=== PATIENT | male | born 1975 | race Two or more races ===

== ENCOUNTER 2024-03-15 16:09 | Inpatient (IN) | payer MEDICAID, OTHER ==
[~2024-03-15] VITALS: Ht 165.1 cm; Wt 84.5 kg
--- NOTE | 2024-03-15 16:28 | ED.PDOC ---
General HPI Comments HPI: Poor Historian. 48-year-old male presents to emergency department for evaluation of urinary symptoms and pink urine. Patient has some minimal suprapubic pain. Patient has some burning with urination. Onset of symptoms this morning. Patient was found with a fever here in the emergency department. Patient denies any nausea or vomiting or diarrhea. Vitals T: 100.3 F RR: 20 HR: 130 BP: 93/76 O2: 98 % on RA PMH: HLD, HTN PSH: denies Social hx: denies tobacco use, endorses ETOH use, denies drug use medications: unknown allergies: NKDA REVIEW OF SYSTEMS: CONSTITUTIONAL: Denies acute: diaphoresis, HEAD: Denies acute: headache, photophobia Eyes: Denies acute: Double vision, vision loss, eye pain, eye discharge. EARS: Denies acute: tinnitus, hearing loss, ear discharge, ear pain, THROAT: Denies acute: sore throat, swelling, difficulty swallowing , pain with swallowing, change in voice. NECK: Denies acute: neck pain, neck swelling, stiff neck. HEART: Denies acute : chest pain, palpitations, LUNGS: Denies acute: SOB, wheezing, cough, hemoptysis ABDOMEN: Denies acute: abdominal pain, Nausea, Vomiting, diarrhea, melena , hematemesis, hematochezia SKIN: Denies acute: rash, redness, lesions, itchiness. EXTREMITIES: Denies acute: calf pain, numbness, tingling, weakness, denies pain in extremity. Denies acute: Low back pain. Neuro: Denies acute: focal neurological deficit, motor or sensory focal neurological deficit, tremors, seizure like activity, confusion, dizziness, change in mental status, loss of bowel or bladder function, cauda equina like symptoms. : Denies acute: flank pain, increase in urinary frequency. PSYCH: Denies acute: hallucination, suicidal ideation, homicidal ideation. PHYSICAL EXAM: General: Mild acute distress, awake and alert. Head: normocephalic, atraumatic. Neck: supple, trachea is midline, no swelling. Throat: Normal phonation. Eyes:, no erythema, no purulent discharge, no proptosis, no icterus. Heart: regular tachycardic, no significant murmur appreciated. Lungs: no apparent respiratory distress, Able to speak in full sentences. No wheezing, no rhonchi, no crackles. No stridors Clear to auscultation bilaterally. Abdomen: Suprapubic tender to palpation, non distended, soft, no guarding, no rebound, + bowel sounds. Neuro: Awake, Alert, oriented to name, self, situation, follows commands GCS=15. Speech is normal. Skin: no petechia, no purpura, no cyanosis, non-pale, not jaundice. Lower extremities: --no - Pitting edema no deformity, no focal swelling, no calf TTP. Makes eye contact. moves all four extremities. Face: no apparent facial droop. Ambulating in the ED independently. Chief Complaint: Urinary Time Seen by MD: 16:27 Primary Care Provider: HEIDY Adkins notes: Nurses Notes, Allergies Allergies: Coded Allergies: NO KNOWN ALLERGIES (Unverified , 03/15/24) Information Source: Patient Mode of Arrival: Ambulatory Past Medical History PAST MEDICAL HISTORY: High Lipids, HTN Surgical History: Denies all surgeries Family History Family History: Reviewed,noncontributory to illness Social History Smoker: Non-Smoker Alcohol: Occasionally Drugs: Denies Drug Use Lives In: Home Was a procedure done? Was a procedure done?: No Differential Diagnosis Kidney stone (Female): N/A Urinary Problem (Male): Bladder Outlet, Bladder Obstruction, Epididymitis, Prostatitis, Plelonephritis, Post op Complications, Renal Failure, Urethritis, Urinary Retention, Urolithiasis, UTI, Other (MALE URINARY PROBLEMSDDX BPH, OBSTRUCTING NEOPLASM, BLADDER PATHOLOGY, OBSTRUCTION STONE. PHYMOSIS/PAPRPHYMOSIS, CAUDA EQUINA SYNDROME, UTI.) X-Ray, Labs, Meds, VS Vital Signs Date Time Temp Pulse Resp B/P (MAP) Pulse Ox O2 Delivery O2 Flow Rate FiO2 03/15/24 20:12 102.3 120 18 122/83 (96) 96 102.3 03/15/24 19:10 100.6 118 18 136/92 (107) 97 100.6 03/15/24 16:11 100.3 130 20 93/76 (82) 98 Lab Test 03/15/24 18:16 03/15/24 16:39 Range/Units Urine Color Colorless Yellow Urine Clarity Turbid H Clear Urine pH 6.5 5.0-9.0 Urine Specific [place] 1.020 1.001-1.035 Urine Protein 2+ H Negative Urine Ketones Negative Negative Urine Blood 3+ H Negative /uL Urine Nitrite Negative Negative Urine Bilirubin Negative Negative Urine Urobilinogen Normal Negative mg/dL Urine Leukocyte Esterase 2+ Negative /uL Urine RBC 1161 0 - 3 /hpf Urine WBC 131 0 - 3 /hpf Urine Squamous Epithelial Cells Few <5 /hpf Urine Bacteria None seen None Seen /hpf Urine Mucus Few None Seen Urine Glucose Normal Normal mg/dL White Blood Count 12.9 H 4.4-10.8 10^3/uL Red Blood Count 4.96 4.5-5.90 10^6/uL Hemoglobin 14.5 13.5-17.5 g/dL Hematocrit 44.1 41.0-53.0 % Mean Corpuscular Volume 88.9 80.0-100.0 fL Mean Corpuscular Hemoglobin 29.2 28.0-32.0 pg Mean Corpuscular Hemoglobin Concent 32.9 32.0-36.0 g/dL Red Cell Distribution Width 15.4 H 11.8-14.3 % Platelet Count 293 140-450 10^3/uL Mean Platelet Volume 9.1 6.9-10.8 fL Neutrophils (%) (Auto) 76.9 37.0-80.0 % Lymphocytes (%) (Auto) 14.4 10.0-50.0 % Monocytes (%) (Auto) 7.7 0.0-12.0 % Eosinophils (%) (Auto) 0.8 0.0-7.0 % Basophils (%) (Auto) 0.2 0.0-2.0 % Neutrophils # (Auto) 9.9 H 1.6-8.6 10 ^3/uL Lymphocytes # (Auto) 1.9 0.4-5.4 10 ^3/uL Monocytes # (Auto) 1.0 0-1.3 10 ^3/uL Eosinophils # (Auto) 0.1 0-0.8 10 ^3/uL Basophils # (Auto) 0 0-0.2 10 ^3/uL Nucleated Red Blood Cells 0.0 % Sodium Level 141 136-145 mmol/L Potassium Level 3.9 3.5-5.1 mmol/L Chloride Level 104 98-107 mmol/L Carbon Dioxide Level 28 20-31 mmol/L Anion Gap 9 5-15 Blood Urea Nitrogen 9 9-23 mg/dL Creatinine 0.85 0.700-1.30 mg/dL Glomerular Filtration Rate Calc 107 >90 mL/min BUN/Creatinine Ratio 10.6 10.0-20.0 Serum Glucose 92 74-106 mg/dL Lactic Acid Level 1.0 0.4-2.0 mmol/L Calcium Level 10.1 8.7-10.4 mg/dL Magnesium Level 2.0 1.6-2.6 mg/dL Total Bilirubin 0.4 0.2-1.0 mg/dL Aspartate Amino Transferase (AST) 11 L 13-40 U/L Alanine Aminotransferase (ALT) 16 7-40 U/L Alkaline Phosphatase 96 46-116 U/L Troponin I High Sensitivity < 3 L </=54 ng/L Total Protein 7.9 5.7-8.2 g/dL Albumin 5.0 H 3.2-4.8 g/dL Current Medications Medications (Trade) Dose Ordered Sig/Shane Route Start Time Stop Time Status Last Admin Sodium Chloride 1,000 ml @ 1,000 mls/hr Q1H ONCE IV 03/15/24 16:30 03/15/24 17:29 DC 03/15/24 20:05 Ceftriaxone Sodium 50 ml @ 100 mls/hr ONCE ONCE IV 03/15/24 16:30 03/15/24 16:59 DC 03/15/24 20:05 Tamsulosin HCl (Flomax) 0.4 mg ONCE ONCE PO 03/15/24 18:00 03/15/24 18:03 DC 03/15/24 19:15 Acetaminophen (Tylenol Tablet) 650 mg ONCE ONCE PO 03/15/24 20:15 03/15/24 20:16 [place] 03/15/24 20:17 [place] [address] Ph: [phone] DIAGNOSTIC IMAGING Diagnostic Imaging Report : [id number] Signed PATIENT: ÓSCAR TRIVEDI: [id number] UNIT: [id number] : 1975 LOC: ER ROOM / BED: / AGE / SEX: 48 / M ADM STATUS: REG ER SERVICE 1108 ORDERING PHYSICIAN: ANNIKA KOHLI DO PROCEDURE(s): CXRP - CHEST PORTABLE REASON: fever, tachy ORDER NUMBER(s): [id number], ACCESSION NUMBER(s): [id number] CHEST RADIOGRAPH Indication: fever, tachy Technique: Single frontal view of the chest was obtained Comparison: None FINDINGS: Lines and Tubes: None Lungs: No focal consolidation. Eventration of the right hemidiaphragm. Pleura: No effusion. No pneumothorax. Cardiomediastinal contours: Unremarkable Bones: No acute osseous abnormality. IMPRESSION: No acute cardiopulmonary disease. ATED BY: GEORGETTE HELM DO DICTATED DATE/TIME: 03/15/241649 SIGNED BY: GEORGETTE HELM DO SIGNED DATE/TIME: 03/15/241649 CC: [place] [address] Ph: [phone] DIAGNOSTIC IMAGING Diagnostic Imaging Report : [id number] Signed PATIENT: REKHA TRIVEDIACCT: [id number] UNIT: [id number] : 1975 LOC: ER ROOM / BED: / AGE / SEX: 48 / M ADM STATUS: REG ER SERVICE 17 ORDERING PHYSICIAN: ANNIKA KOHLI DO PROCEDURE(s): ABPL - CT AB PEL WO CON-NO ORAL OR IV REASON: hematuria, dysurea, fever ORDER NUMBER(s): [id number], ACCESSION NUMBER(s): [id number] Exam: CT CT AB PEL WO CON-NO ORAL OR IV History: hematuria, dysurea, fever Comparison Study: None available at time of dictation. TECHNIQUE: Multidetector CT of the abdomen was performed from lung bases to pubic symphysis. Imaging was performed without IV contrast. Axial, coronal and sagittal multiplanar reformats were obtained from the axial data set by the technologist. Radiation Dose Information: CT Dose: CTDI volume is 11.2 mGy. Dose-length product is 647.99 mGy*cm FINDINGS: Evaluation of solid organs is limited due to lack of intravenous contrast use. Findings: Lung Bases: No acute or significant lung base finding. Normal heart size. No pleural or pericardial effusion. Liver: The liver is normal in size. No focal lesions. Gallbladder and Biliary Tree: Unremarkable Spleen: Unremarkable Pancreas: The pancreas is grossly normal in appearance. Adrenal Glands: Unremarkable Kidneys: Kidneys are grossly normal without calculi or hydronephrosis. Bladder: 3-4 mm calculus at the left ureterovesical junction. Bowel: The stomach is grossly normal in appearance. Small bowel and colon are normal in caliber and distribution. The appendix is not visualized; however, no secondary findings of acute appendicitis identified. Ascites: Absent Lymphadenopathy: No mesenteric, retroperitoneal or periportal lymphadenopathy. Abdominal Wall and Mesentery: Unremarkable. Vasculature: The visualized abdominal aorta is normal in size and caliber. Evaluation of abdominal and pelvic vessels is limited due to lack of intravenous contrast. Pelvic Organs: Unremarkable Musculoskeletal: No aggressive focal bony lesions, acute fractures or dislocation. Soft tissues: Unremarkable IMPRESSION: 1. 3-4 mm calculus near the left ureterovesical junction. Correlate with laterality of patient's symptomatology. ( series 2 ; images ) 2. No calcified gallstones 3. No findings of bowel obstruction 4. No significant hydronephrosis. Radiation optimization: All CT scans at this facility use at least one of these dose optimization techniques: automated exposure control mA and/or kV adjustment per patient size (includes targeted exams where dose is matched to clinical indication) or iterative reconstruction. ATED BY: GARLAND LAZAR Jr., DO DICTATED DATE/TIME: 03/15/241735 SIGNED BY: GARLAND LAZAR Jr., SIGNED DATE/TIME: 03/15/241735 CC: Time of 1ST Reevaluation: 18:23 Reevaluation 1ST: Improved Patient Education/Counseling: Diagnosis, Treatment Family Education/Counseling: No Family Present Comments Patient presented with the above HPI.--urinary complaint----workup was initiated. patient was found with the above mentioned diagnosis. Patient was given: Fluids, Rocephin for UTI, Tylenol for fever. Patient ED course and VS have been stabilized. Patient has been reassessed in the ED and remained in a stable condition. Pertinent incidental findings were discussed with the patient and/or family. Patient/family voices understanding and is agreeable with plan. Patient has been observed in the ED adequate length of time to insure improvement/stability. patient was admitted to the medicine team for further evaluation and treatment of their presentation. All the reports of any imaging studies that were ordered by myself were reviewed by myself. Departure 1 Departure Time of Disposition: 18:21 Impression: Primary Impression: UTI (urinary tract infection) Additional Impressions: Kidney stone Fever Disposition: ADMITTED INPATIENT Admit to: Tele Condition: Guarded Discharged With: Self Critical Care Note Critical Care Time?: No I personally scribed for ANNIKA KOHLI DO ([email or web address]) on 03/15/24 at 16:28. [place] ctronically submitted by Nora Lux ([email or web address]). I personally scribed for ANNIKA KOHLI DO ([email or web address]) on 03/15/24 at 16:54. Electronically submitted by Nora Lux (NAVNEET). I personally scribed for ANNIKA KOHLI DO ([email or web address]) on 03/15/24 at 17:42. Electronically submitted by Nora PAYNE). ANNIKA KOHLI DO Mar 15, 2024 16:28
--- NOTE | 2024-03-15 16:52 | DVH ---
CHEST RADIOGRAPH Indication: fever, tachy Technique: Single frontal view of the chest was obtained Comparison: None FINDINGS: Lines and Tubes: None Lungs: No focal consolidation. Eventration of the right hemidiaphragm. Pleura: No effusion. No pneumothorax. Cardiomediastinal contours: Unremarkable Bones: No acute osseous abnormality. IMPRESSION: No acute cardiopulmonary disease.
[2024-03-15 16:59] LABS: Basophils # (auto) 0 10 ^3/uL (0-0.2); Basophils % (auto) 0.2 % (0.0-2.0); Eosinophils # (auto) 0.1 10 ^3/uL (0-0.8); Eosinophils % (auto) 0.8 % (0.0-7.0); Hematocrit 44.1 % (41.0-53.0); Hemoglobin 14.5 g/dL (13.5-17.5); Lymphocytes # (auto) 1.9 10 ^3/uL (0.4-5.4); Lymphocytes % (auto) 14.4 % (10.0-50.0); Mean Corpuscular Hemoglobin 29.2 pg (28.0-32.0); Mean Corpuscular Hgb Conc. 32.9 g/dL (32.0-36.0); Mean Corpuscular Volume 88.9 fL (80.0-100.0); Monocytes % (auto) 7.7 % (0.0-12.0); Neutrophils # (auto) 9.9 10 ^3/uL (1.6-8.6); Neutrophils % (auto) 76.9 % (37.0-80.0); Platelet Count (auto) 293 10^3/uL (140-450); Red Blood Cells 4.96 10^6/uL (4.5-5.90); Red Cell Distribution Width 15.4 % (11.8-14.3); White Blood Cell 12.9 10^3/uL (4.4-10.8)
[2024-03-15 17:14] LABS: Alanine Aminotransferase 16 U/L (7-40); Alkaline Phosphatase 96 U/L (46-116); Anion Gap 9 (5-15); Aspartate Aminotransferase 11 U/L (13-40); BUN/Creatinine Ratio 10.6 (10.0-20.0); Bilirubin, Total 0.4 mg/dL (0.2-1.0); Blood Urea Nitrogen 9 mg/dL (9-23); Calcium 10.1 mg/dL (8.7-10.4); Carbon Dioxide 28 mmol/L (20-31); Chloride 104 mmol/L (98-107); Glucose 92 mg/dL (74-106); Potassium 3.9 mmol/L (3.5-5.1); Sodium 141 mmol/L (136-145); Total Protein 7.9 g/dL (5.7-8.2)
--- NOTE | 2024-03-15 17:39 | DVH ---
Exam: CT CT AB PEL WO CON-NO ORAL OR IV History: hematuria, dysurea, fever Comparison Study: None available at time of dictation. TECHNIQUE: Multidetector CT of the abdomen was performed from lung bases to pubic symphysis. Imaging was performed without IV contrast. Axial, coronal and sagittal multiplanar reformats were obtained fr om the axial data set by the technologist. Radiation Dose Information: CT Dose: CTDI volume is 11.2 mGy. Dose-length product is 647.99 mGy*cm FINDINGS: Evaluation of solid organs is limited due to lack of intravenous contrast use. Findings: Lung Bases: No acute or significant lung base finding. Normal heart size. No pleural or pericardial effusion. Liver: The liver is normal in size. No focal lesions. Gallbladder and Biliary Tree: Unremarkable Spleen: Unremarkable Pancreas: The pancreas is grossly normal in appearance. Adrenal Glands: Unremarkable Kidneys: Kidneys are grossly normal without calculi or hydronephrosis. Bladder: 3-4 mm calculus at the left ureterovesical junction. Bowel: The stomach is grossly normal in appearance. Small bowel and colon are normal in caliber and d istribution. The appendix is not visualized; however, no secondary findings of acute appendicitis id entified. Ascites: Absent Lymphadenopathy: No mesenteric, retroperitoneal or periportal lymphadenopathy. Abdominal Wall and Mesentery: Unremarkable. Vasculature: The visualized abdominal aorta is normal in size and caliber. Evaluation of abdominal a nd pelvic vessels is limited due to lack of intravenous contrast. Pelvic Organs: Unremarkable Musculoskeletal: No aggressive focal bony lesions, acute fractures or dislocation. Soft tissues: Unremarkable IMPRESSION: 1. 3-4 mm calculus near the left ureterovesical junction. Correlate with laterality of patient's sym ptomatology. ( series 2 ; images ) 2. No calcified gallstones 3. No findings of bowel obstruction 4. No significant hydronephrosis. Radiation optimization: All CT scans at this facility use at least one of these dose optimization john hniques: automated exposure control mA and/or kV adjustment per patient size (includes targeted exam s where dose is matched to clinical indication) or iterative reconstruction.
[2024-03-15] MEDS: TAMSULOSIN HYDROCHLORIDE 0.4 MG CAP PO ONE (19:15)
[2024-03-15] MEDS: SODIUM CHLORIDE 0.9% 1,000 ML IV ONE (20:05)
[2024-03-15] MEDS: cefTRIAXone 1GM/50ML D5W 50 ML IV ONE (20:05)
[2024-03-15 20:11] LABS: Urine Bacteria None Seen /hpf (None Seen)
[2024-03-15] MEDS ORDERED: ACETAMINOPHEN 325 MG TAB PO PRN (20:15)
[2024-03-15] MEDS ORDERED: MORPHINE SULFATE INJ 2 MG/ml SYRG IV PRN ×2 (20:15)
[2024-03-15] MEDS ORDERED: ONDANSETRON HCL 4 MG/2 ML VIAL IV PRN (20:15)
[2024-03-15] MEDS ORDERED: NITROGLYCERIN 0.4 MG SL TAB SL PRN (20:15)
[2024-03-15] MEDS: ACETAMINOPHEN 325 MG TAB PO ONE (20:17)
[2024-03-15 20:30] LABS: Urine Blood 3+ /uL (Negative); Urine Clarity Turbid (Clear); Urine Color Colorless (Yellow); Urine Mucus FEW (None Seen); Urine Protein, UAD 2+ (Negative); Urine Urobilinogen Normal (Negative); Urine WBC 131 /hpf (0 - 3); Urine pH 6.5 (5.0-9.0)
--- NOTE | 2024-03-15 22:13 | DVH ---
EXAM: US KIDNEY HISTORY: to rule out radiopaque stone. Hematuria. COMPARISON: CT obtained earlier the same day. TECHNIQUE: Real-time ultrasound performed utilizing grayscale and color techniques. FINDINGS: RIGHT KIDNEY: Measures 11.2 cm in length. Normal cortical thickness and echotexture. No hydronephrosi s or sizable, shadowing calculi identified. LEFT KIDNEY: Measures 11.4 cm in length. Normal cortical thickness and echotexture. No hydronephrosis or sizable, shadowing calculi identified. BLADDER: Underdistended and therefore can not be adequately evaluated. IMPRESSION: No hydronephrosis or sizable renal calculi identified.
[2024-03-16] VITALS (7 sets, daily range): BP systolic 107–123; BP diastolic 58–84; PULSE 66–102; RESP 16–20; TEMP 98.1–99.6; O2SAT 92–98
[2024-03-16] MEDS: cefTRIAXone 1GM/50ML D5W 50 ML IV ONE (00:14)
[2024-03-16] MEDS: SODIUM CHLOR 0.9% PF (SALINE LOCK) 10ML VIAL/SYR IV SCH (00:14)
[2024-03-16] MEDS: MANNITOL FTV 25% 12.5 GM/50 ML 50 ML IV ONE (01:10)
[2024-03-16] MEDS: LACTATED RINGER'S 1,850 ML IV ONE (01:11)
[2024-03-16] MEDS: LACTATED RINGER'S 1,000 ML IV SCH (01:11)
--- NOTE | 2024-03-16 01:16 | DVHHPRES ---
History of Present Illness Resident Creating Document: EUGENIA THOMPSON RESIDENT History of Present Illness Patient is 48 years old male with past medical history of hypertension, hyperlipidemia came with a complaint of blood in the uterine so 1 day ago. As per patient patient reported seeing blood in the urine. Patient also complained of pain in the pain is especially when micturition, 10/10, cramping in nature no aggravating or relieving factor. Patient also reported having dysuria. Patient reported that he had fever at home from 100-2 104 F. patient denied any chest pain, shortness of breath, constipation, diarrhea, acute joint pain or swelling, dysarthria, change in vision. Initial lab workup revealed leukocytosis WBC BC 12.9, urinalysis revealed UTI with leukocyte esterase 2+, WBC 131, RBC 1161. CT abdomen [id number] mm calculus near the left ureterovesical junction. Correlate with laterality of patient's symptomatology. No calcified gallstone.No significant hydronephrosis. Renal ultrasound was negative for hydronephrosis. Chest x-ray negative for acute cardiopulmonary disease. Past Medical History Hypertension, hyperlipidemia Past Surgical History None Family History Mom had diabetes mellitus Past Social History Lives with , alcoholic, denies smoking or drug abuse Review of Systems Review of Systems Allergy- NKDA Patient was seen today at the bedside. Patient reports pain is better Cardiovascular- deny acute chest pain or shortness of breath or cough or palpitation Respiratory- denies cough or short of breath or wheezing Gastrointestinal- denies any rectal bleeding, nausea or vomiting Musculoskeletal-denies acute joint swelling or tenderness or redness Neurological- denies acute dysarthria, dysphagia, change in vision Psychiatry- denies depression or SI or HI Skin- denies acute rash or purpura Allergies: Coded Allergies: NO KNOWN ALLERGIES (Unverified , 03/15/24) Medications Current Medications Medications Dose Ordered Sig/Shane Route Start Time Stop Time Status Last Admin Dose Admin Sodium Chloride 10 ml Q8HR IV 03/15/24 22:00 03/16/24 00:14 10 ML Ondansetron HCl 4 mg Q4HP PRN IV 03/15/24 20:15 Acetaminophen 650 mg Q6HP PRN PO 03/15/24 20:15 Morphine Sulfate 2 mg Q4HPRN PRN IV 03/15/24 20:15 Lactated Ringer's 1,000 ml @ 125 mls/hr Q8H IV 03/15/24 21:45 Ceftriaxone Sodium/Dextrose 50 ml @ 50 mls/hr DAILY IV 03/16/24 10:00 Tamsulosin HCl 0.4 mg QPM PO 03/16/24 18:00 Exam Vital Signs Vital Signs Date Time Temp Pulse Resp B/P (MAP) Pulse Ox O2 Delivery O2 Flow Rate FiO2 03/15/24 20:58 100.3 03/15/24 20:12 120 18 122/83 (96) 96 Exam General examination- awake, alert, oriented, conversant HEENT- PEERLA, no acute nasal discharge Cardiovascular- S1-S2 audible, rate and rhythm regular, no murmur Respiratory- CTAB, no wheeze or rhonchi Gastrointestinal-nontender, bowel sound+. Nondistended Musculoskeletal-no acute joint swelling or tenderness or redness# Lower extremity- no leg edema -renal system-no renal angle tenderness Neurological- cranial nerves intact, no acute dysarthria or dysphagia Psychiatry- denies depression or SI or HI Skin- no acute rash or purpura Labs/Xrays Labs Test 03/15/24 18:16 03/15/24 16:39 Range/Units Urine Color Colorless Yellow Urine Clarity Turbid H Clear Urine pH 6.5 5.0-9.0 Urine Specific [place] 1.020 1.001-1.035 Urine Protein 2+ H Negative Urine Ketones Negative Negative Urine Blood 3+ H Negative /uL Urine Nitrite Negative Negative Urine Bilirubin Negative Negative Urine Urobilinogen Normal Negative mg/dL Urine Leukocyte Esterase 2+ Negative /uL Urine RBC 1161 0 - 3 /hpf Urine WBC 131 0 - 3 /hpf Urine Squamous Epithelial Cells Few <5 /hpf Urine Bacteria None seen None Seen /hpf Urine Mucus Few None Seen Urine Glucose Normal Normal mg/dL White Blood Count 12.9 H 4.4-10.8 10^3/uL Red Blood Count 4.96 4.5-5.90 10^6/uL Hemoglobin 14.5 13.5-17.5 g/dL Hematocrit 44.1 41.0-53.0 % Mean Corpuscular Volume 88.9 80.0-100.0 fL Mean Corpuscular Hemoglobin 29.2 28.0-32.0 pg Mean Corpuscular Hemoglobin Concent 32.9 32.0-36.0 g/dL Red Cell Distribution Width 15.4 H 11.8-14.3 % Platelet Count 293 140-450 10^3/uL Mean Platelet Volume 9.1 6.9-10.8 fL Neutrophils (%) (Auto) 76.9 37.0-80.0 % Lymphocytes (%) (Auto) 14.4 10.0-50.0 % Monocytes (%) (Auto) 7.7 0.0-12.0 % Eosinophils (%) (Auto) 0.8 0.0-7.0 % Basophils (%) (Auto) 0.2 0.0-2.0 % Neutrophils # (Auto) 9.9 H 1.6-8.6 10 ^3/uL Lymphocytes # (Auto) 1.9 0.4-5.4 10 ^3/uL Monocytes # (Auto) 1.0 0-1.3 10 ^3/uL Eosinophils # (Auto) 0.1 0-0.8 10 ^3/uL Basophils # (Auto) 0 0-0.2 10 ^3/uL Nucleated Red Blood Cells 0.0 % Sodium Level 141 136-145 mmol/L Potassium Level 3.9 3.5-5.1 mmol/L Chloride Level 104 98-107 mmol/L Carbon Dioxide Level 28 20-31 mmol/L Anion Gap 9 5-15 Blood Urea Nitrogen 9 9-23 mg/dL Creatinine 0.85 0.700-1.30 mg/dL Glomerular Filtration Rate Calc 107 >90 mL/min BUN/Creatinine Ratio 10.6 10.0-20.0 Serum Glucose 92 74-106 mg/dL Lactic Acid Level 1.0 0.4-2.0 mmol/L Uric Acid 6.1 3.7-9.2 mg/dL Calcium Level 10.1 8.7-10.4 mg/dL Magnesium Level 2.0 1.6-2.6 mg/dL Total Bilirubin 0.4 0.2-1.0 mg/dL Aspartate Amino Transferase (AST) 11 L 13-40 U/L Alanine Aminotransferase (ALT) 16 7-40 U/L Alkaline Phosphatase 96 46-116 U/L Troponin I High Sensitivity < 3 L </=54 ng/L Total Protein 7.9 5.7-8.2 g/dL Albumin 5.0 H 3.2-4.8 g/dL Thyroid Stimulating Hormone (TSH) 0.69 0.55-4.78 uIU/mL Assessment/Plan Assessment/Plan # sepsis likely due to UTI with renal stone --patient complained of blood in urine -fever, tachycardia - urinalysis revealed UTI with leukocyte esterase 2+, WBC 131, RBC 1161. -pending urine culture -pending blood culture -CT abdomen [id number]-5-0 mm calculus near the left ureterovesical junction.No significant hydronephrosis. - Renal ultrasound was negative for hydronephrosis. -continue ceftriaxone 1 g IV daily -continue IV fluid as prescribed -continue tamsulosin 0.4 mg p.o. Q HS -ordered IV mannitol -strain all urine - # hematuria likely due to renal stone and UTI -patient complained of blood in urine - urinalysis revealed UTI with leukocyte esterase 2+, WBC 131, RBC 1161. -pending urine culture -CT abdomen [id number]-8-5 mm calculus near the left ureterovesical junction.No significant hydronephrosis. - Renal ultrasound was negative for hydronephrosis. -continue ceftriaxone 2 g IV daily -continue IV fluid as prescribed -strain all urine # UTI --patient complained of blood in urine, dysuria - urinalysis revealed UTI with leukocyte esterase 2+, WBC 131, RBC 1161. -pending urine culture -pending blood culture -CT abdomen zjyjwjdb-5-4 mm calculus near the left ureterovesical junction.No significant hydronephrosis. - Renal ultrasound was negative for hydronephrosis. -continue ceftriaxone 2 g IV daily -continue IV fluid as prescribed -pending uterine CS #Left renal stone --CT abdomen twmbnnvm-0-7 mm calculus near the left ureterovesical junction.No significant hydronephrosis. - Renal ultrasound was negative for hydronephrosis. -continue IV fluid as prescribed -continue tamsulosin 0.4 mg p.o. Q HS -ordered IV mannitol -strain all urine # hypertension -hydralazine 10 mg IV q.6h p.r.n. -monitor BP # hyperlipidemia -pending lipid profile Goals of care/advance care planning; FULL CODE; discussed with the patient >15 minutes PUD prophylaxis: DVT prophylaxis: Patient ambulating PCP-Dr. Santiago Owen Plan discussed with Dr. Funez, nursing staff, patient Total time spent on patient evaluation, chart review, assessment and plan, discussion discussion >30 minutes Plan discussed with: Patient Plan discussed with: Patient, Other (RN) My Orders Orders - EUGENIA THOMPSON Procedure Category Date Status Time Admit ADMIT 03/15/24 Transmitted 20:15 Code Status CODE 03/15/24 Transmitted 20:15 Sodium Chloride Lock PHA 03/15/24 In Process (Saline Lock Ns) 22:00 Ondansetron Hcl PHA 03/15/24 In Process (Zofran) 20:15 Complete Blood Count LAB 03/16/24 Logged 04:00 Acetaminophen Tablet [facility] 03/15/24 In Process (Tylenol Tablet) 20:15 Morphine Sulfate [facility] 03/15/24 In Process Injection 20:15 Oxygen By Nasal RT 03/15/24 Transmitted Cannula 20:15 Stat Ekg For Chest [facility] 03/15/24 In Process Pain 20:15 Notify Md Of Changes [facility] 03/15/24 In Process From Base 20:15 Director Of Programming For [facility] 03/15/24 In Process 24 Hours 20:15 Emergency Dysrhythmia [facility] 03/15/24 In Process Protocol 20:15 Rhythm Strips Once [facility] 03/15/24 In Process Every Shift 20:15 Date of Service: Mar 15, 2024 Billing Provider: HERNANDO FUNEZ MD Common Visit Codes: 55040-[id number] INP/OBS CARE (HIGH) EUGENIA THOMPSON RESIDENT Mar 16, 2024 01:16 HERNANDO FUNEZ MD Mar 16, 2024 07:05
[2024-03-16 05:36] LABS: Chloride 107 mmol/L (98-107); Potassium 3.6 mmol/L (3.5-5.1); Sodium 140 mmol/L (136-145)
[2024-03-16 05:37] LABS: Anion Gap 6 (5-15); Calcium 9.3 mg/dL (8.7-10.4); Carbon Dioxide 27 mmol/L (20-31)
[2024-03-16 05:42] LABS: BUN/Creatinine Ratio 13.5 (10.0-20.0); Blood Urea Nitrogen 10 mg/dL (9-23); Glucose 107 mg/dL (74-106)
[2024-03-16 06:00] LABS: Basophils # (auto) 0 10 ^3/uL (0-0.2); Basophils % (auto) 0.3 % (0.0-2.0); Eosinophils # (auto) 0.2 10 ^3/uL (0-0.8); Eosinophils % (auto) 1.7 % (0.0-7.0); Hematocrit 39.6 % (41.0-53.0); Hemoglobin 12.9 g/dL (13.5-17.5); Lymphocytes # (auto) 2.1 10 ^3/uL (0.4-5.4); Lymphocytes % (auto) 18.7 % (10.0-50.0); Mean Corpuscular Hgb Conc. 32.6 g/dL (32.0-36.0); Mean Corpuscular Volume 89.1 fL (80.0-100.0); Monocytes # (auto) 1.1 10 ^3/uL (0-1.3); Monocytes % (auto) 9.3 % (0.0-12.0); Nucleated Red Blood Cells % 0.1 %; Platelet Count (auto) 239 10^3/uL (140-450); Red Blood Cells 4.45 10^6/uL (4.5-5.90); Red Cell Distribution Width 15.2 % (11.8-14.3); White Blood Cell 11.4 10^3/uL (4.4-10.8)
[2024-03-16] MEDS ORDERED: cefTRIAXone 1GM/50ML D5W 50 ML IV SCH (09:00)
[2024-03-16] MEDS: cefTRIAXone 2GM/50ML D5W 50 ML IV SCH (11:23)
[2024-03-16 13:50] LABS: Amphetamine Screen, Urine Neg (NEGATIVE); Barbiturate Scree,Urine Neg (NEGATIVE); Benzodiazephine Screen, Urine Neg (NEGATIVE); Cannabinoid Screen, Urine Neg (NEGATIVE); Cocaine Screen, Urine Neg (NEGATIVE); Opiate Scree,Urine Neg (NEGATIVE); Phencyclidine Screen, Urine Neg (NEGATIVE)
[2024-03-16] MEDS ORDERED: TAMS-35 PO (16:43)
[2024-03-16] MEDS ORDERED: CEPH250C PO (16:43)
[2024-03-16] MEDS ORDERED: ACET-1882 PO (16:43)
--- NOTE | 2024-03-16 16:59 | DVHDSRES ---
Discharge Summary Date of Admission Resident Creating Document: YVES CHAVEZ RESIDENT Mar 15, 2024 at 20:15 Date of Discharge: Mar 16, 2024 Admitting Diagnosis Acute urinary symptoms Labs/Diagnostic Data: Laboratory Results Test 03/16/24 05:16 03/15/24 18:16 03/15/24 16:39 White Blood Count 11.4 10^3/uL (4.4-10.8) Red Blood Count 4.45 10^6/uL (4.5-5.90) Hemoglobin 12.9 g/dL (13.5-17.5) Hematocrit 39.6 % (41.0-53.0) Mean Corpuscular Volume 89.1 fL (80.0-100.0) Mean Corpuscular Hemoglobin 29.0 pg (28.0-32.0) Mean Corpuscular Hemoglobin Concent 32.6 g/dL (32.0-36.0) Red Cell Distribution Width 15.2 % (11.8-14.3) Platelet Count 239 10^3/uL (140-450) Mean Platelet Volume 9.2 fL (6.9-10.8) Neutrophils (%) (Auto) 70.0 % (37.0-80.0) Lymphocytes (%) (Auto) 18.7 % (10.0-50.0) Monocytes (%) (Auto) 9.3 % (0.0-12.0) Eosinophils (%) (Auto) 1.7 % (0.0-7.0) Basophils (%) (Auto) 0.3 % (0.0-2.0) Neutrophils # (Auto) 8.0 10 ^3/uL (1.6-8.6) Lymphocytes # (Auto) 2.1 10 ^3/uL (0.4-5.4) Monocytes # (Auto) 1.1 10 ^3/uL (0-1.3) Eosinophils # (Auto) 0.2 10 ^3/uL (0-0.8) Basophils # (Auto) 0 10 ^3/uL (0-0.2) Nucleated Red Blood Cells 0.1 % Sodium Level 140 mmol/L (136-145) Potassium Level 3.6 mmol/L (3.5-5.1) Chloride Level 107 mmol/L (98-107) Carbon Dioxide Level 27 mmol/L (20-31) Anion Gap 6 (5-15) Blood Urea Nitrogen 10 mg/dL (9-23) Creatinine 0.74 mg/dL (0.700-1.30) Glomerular Filtration Rate Calc 111 mL/min (>90) BUN/Creatinine Ratio 13.5 (10.0-20.0) Serum Glucose 107 mg/dL (74-106) Hemoglobin A1c 5.7 % A1C (<5.7) Calcium Level 9.3 mg/dL (8.7-10.4) Plasma/Serum Blood Alcohol < 3.0 mg/dL (<10) Urine Color Colorless (Yellow) Urine Clarity Turbid (Clear) Urine pH 6.5 (5.0-9.0) Urine Specific [place] 1.020 (1.001-1.035) Urine Protein 2+ (Negative) Urine Ketones Negative (Negative) Urine Blood 3+ /uL (Negative) Urine Nitrite Negative (Negative) Urine Bilirubin Negative (Negative) Urine Urobilinogen Normal mg/dL (Negative) Urine Leukocyte Esterase 2+ /uL (Negative) Urine RBC 1161 /hpf (0 - 3) Urine WBC 131 /hpf (0 - 3) Urine Squamous Epithelial Cells Few /hpf (<5) Urine Bacteria None seen /hpf (None Seen) Urine Mucus Few (None Seen) Urine Glucose Normal mg/dL (Normal) Urine Opiates Screen Neg (NEGATIVE) Urine Fentanyl Screen Neg (NEGATIVE) Urine Barbiturates Screen Neg (NEGATIVE) Urine Phencyclidine Screen Neg (NEGATIVE) Urine Amphetamines Screen Neg (NEGATIVE) Urine Benzodiazepines Screen Neg (NEGATIVE) Urine Cocaine Screen Neg (NEGATIVE) Urine Cannabinoids Screen Neg (NEGATIVE) Lactic Acid Level 1.0 mmol/L (0.4-2.0) Uric Acid 6.1 mg/dL (3.7-9.2) Magnesium Level 2.0 mg/dL (1.6-2.6) Total Bilirubin 0.4 mg/dL (0.2-1.0) Aspartate Amino Transferase (AST) 11 U/L (13-40) Alanine Aminotransferase (ALT) 16 U/L (7-40) Alkaline Phosphatase 96 U/L (46-116) Troponin I High Sensitivity < 3 ng/L (</=54) Total Protein 7.9 g/dL (5.7-8.2) Albumin 5.0 g/dL (3.2-4.8) Thyroid Stimulating Hormone (TSH) 0.69 uIU/mL (0.55-4.78) Other Laboratory Tests 03/16/24 05:16 Brief Hx & Hospital Course: REKHA TRIVEDI is a 48 years old male with past medical history of hypertension, hyperlipidemia came with a complaint of blood in the uterine so 1 day ago. As per patient patient reported seeing blood in the urine. Patient also complained of pain in the pain is especially when micturition, 10/10, cramping in nature no aggravating or relieving factor. Patient also reported having dysuria. Patient reported that he had fever at home from 100-2 104 F. patient denied any chest pain, shortness of breath, constipation, diarrhea, acute joint pain or swelling, dysarthria, change in vision. Patient required hospital admission for further evaluation and management. CT abdominal pelvis and renal ultrasound without contrast showed 3-4 mm calculus near the left ureterovesical junction without hydronephrosis. Patient was given Flomax, IVF and strain the urine. Per patient, he passed the stone. Urinalysis was positive for acute complicated UTI, patient was given Rocephin and ordered urine cultures. Patient condition was improved, hemodynamically stable and in condition to be discharged home with optimal medical treatment. plan discussed with the patient and agreed to the plan. Patient was advised about healthy lifestyle habits including diet, exercise and more oral fluid intake and to follow up with PCP. Pt is lying on bed General Appearance: Alert, Oriented X3, Cooperative, Not in acute distress HEENT: Atraumatic, Mucous membranes moist/pink Respiratory: Clear to auscultation, Normal air movement, No added sounds Cardiovascular: Regular rate, Normal S1, Normal S2, No murmurs Abdominal: Mild suprapubic tenderness. Active bowel sounds, Soft, no distention, Extremities: No edema, Normal pulses, No tenderness/swelling Skin: No Significant rash, except past surgical scars Neuro: Normal speech, sensorimotor deficits none Psych/Mental Status: Mental status NL, Mood NL Nurse was there as sharperone during examination Operations or Procedures EXAM: US KIDNEY IMPRESSION: No hydronephrosis or sizable renal calculi identified. CT CT AB PEL WO CON-NO ORAL OR IV IMPRESSION: 1. 3-4 mm calculus near the left ureterovesical junction. Correlate with laterality of patient's symptomatology. ( series 2 ; images ) 2. No calcified gallstones 3. No findings of bowel obstruction 4. No significant hydronephrosis. Condition at Discharge: Stable Final Diagnosis/Problems List # sepsis likely due to UTI with renal stone # hematuria likely due to renal stone and UTI # UTI # Left renal stone # hypertension # hyperlipidemia Discharge Disposition: Home Discharge Instruct/Medications Diet: Consistent carbohydrate, Cardiac 2g Na,low cholest Activity: No Restrictions, As Tolerated Follow Up/Referral: PCP Medications: Per EMR Discharge Statement: "Patient was advised to return to the ER or call 911 if any headaches, dizziness, shortness of breath, chest pain, abdominal pain, bleeding, fevers, or worsening of medical condition. Patient was counseled about treatment plan, medications, possible side effects, patientverbalized understanding. All questions were answered to the best of my ability. This discharge took greater then 30 minutes in planning, reviewing documentation, counseling the patient, and discussing with other team members." ASSESSMENT ASSESSMENT Assessment Acute complicated UTI Nephrolithiasis Date of Service: Mar 17, 2024 Billing Provider: RUBI RODRIGUEZ MD Common Visit Codes: 83346-CWF/OBS DISCH DAY >30min Coding Comment Comment Attending Attestation I saw and evaluated the patient. I reviewed the residents note and agree with findings and plan as documented in the residents note except as documented below. YVES CHAVEZ RESIDENT Mar 16, 2024 16:59 RUBI RODRIGUEZ MD Mar 17, 2024 21:57
[2024-03-16] MEDS: TAMSULOSIN HYDROCHLORIDE 0.4 MG CAP PO SCH (17:58)
== END 2024-03-16 19:01 | disposition home or self-care (01) | DRG 720 ==
LOC: ER 16:09 → OVERFLOW 20:15
PROVIDERS: ADMIT Student in an Organized Health Care Education/Training Program; ATTEND Student in an Organized Health Care Education/Training Program
DX: A41.9 Sepsis, unspecified organism (principal); E78.5 Hyperlipidemia, unspecified; N39.0 Urinary tract infection, site not specified; N20.0 Calculus of kidney; I10 Essential (primary) hypertension; Z83.3 Family history of diabetes mellitus
CPT/HCPCS: 36415; 71045; 74176; 76775; 80048; 80053; 80307; 80320; 81001; 82306; 82607; 83036; 83605; 83735; 84443; 84484; 84550; 85025; 87040; 96365; G0378